=== PATIENT | male | born 1970 | race African-American/Black ===

== ENCOUNTER 2018-04-20 12:22 | Outpatient (CLI) | payer OTHER | END 2018-04-20 12:23 | disposition home or self-care (01) | LOC: BICULT 12:22 | PROVIDERS: ATTEND Internal Medicine Nephrology | DX: N18.4 Chronic kidney disease, stage 4 (severe) (principal); N28.1 Cyst of kidney, acquired | CPT/HCPCS: 76770 ==

== ENCOUNTER 2020-04-18 14:21 | Inpatient (IN) | payer OTHER, SELFPAY ==
[~2020-04-18 14:21] MED LIST: Iopamidol-370 76% 500 ML 1 ML ONE
[2020-04-18 15:06] LABS: Hemoglobin 13.3 g/dL (14.0-18.0); Mean Corpuscular HGB CONC 32.8 g/dL (32.0-36.0); Mean Corpuscular Hemoglobin 27.4 pg (27.0-31.0); Mean Corpuscular Volume 83.5 fL (78.0-98.0); Mean Platelet Volume 7.9 fL (7.4-10.4); Platelet Count 409 thou/uL (130-400); RBC Distribution Width 11.1 % (11.5-14.5); Red Blood Cell (RBC) Count 4.87 mill/uL (4.70-6.10); White Blood Cell (WBC) Count 8.9 thou/uL (4.8-10.8)
[2020-04-18 15:25] LABS: Band 30 % (5-11); Eosinophils 11 % (0-10); Lymphocytes 13 % (21-51); MDiff Complete? YES; Monocytes 12 % (0-10); Neutrophil 33 % (42-75); Platelet Morphology Comment Appears Increased; RBC Morphology Normal
[2020-04-18 15:30] LABS: ALT (SGPT) 7 U/L (8-55); AST (SGOT) 13 U/L (5-34); Albumin 3.4 g/dL (3.5-5.0); Alkaline Phosphatase 105 U/L (40-110); Anion Gap 12 mmol/L (10-20); BUN (Urea Nitrogen) 7 mg/dL (8.9-20.6); Bilirubin, Total 0.5 mg/dL (0.2-1.2); Calc. Creatinine Clearance 0 mL/min (70-130); Carbon Dioxide 27 mmol/L (22-29); Chloride 99 mmol/L (98-107); Estimated GFR-MDRD 57; Globulin 4.8 g/dL (2.4-3.5); Glucose 214 mg/dL (70-105); Lipase 32 U/L (8-78); Potassium 4.1 mmol/L (3.5-5.1); Protein, Total 8.2 g/dL (6.0-8.3); Sodium 134 mmol/L (136-145)
[2020-04-18] MEDS ORDERED: Ondansetron PF 4 MG/2 ML Vial ONE (17:03)
[2020-04-18] MEDS ORDERED: Morphine 4 MG/ML VIAL ONE (17:03)
--- NOTE | 2020-04-18 17:48 | CT ---
CT OF THE ABDOMEN AND PELVIS WITH IV CONTRAST INDICATION: History of abdominal pain and nausea with Crohn's disease COMPARISON: April 11, 2016 FINDINGS: ABDOMEN: Lung bases: Clear Liver: No focal lesion. Gallbladder: Normal appearing. Pancreas: Normal. Adrenal glands: Normal. Spleen: Normal. Kidneys and ureters: Bilateral renal cysts are stable. There is a 3 mm stone within the inferior pole of the left kidney which is stable. Vasculature: Normal. Lymph nodes:No lymphadenopathy. Free fluid in abdomen:No free fluid is evident. PELVIS: Small and large bowel: There is wall thickening involving the rectum and distal sigmoid colon. There is mild wall thickening involving portions of the transverse colon and splenic flexure. The TI appears within normal limits. The small bowel appears within normal limits. Appendix:Normal Bladder: Normal. Rectal and perirectal soft tissues:Mild wall thickening with perirectal inflammatory stranding Reproductive structures: Normal. Free fluid in pelvis: No free fluid is evident. Lymphadenopathy pelvis: A few mildly prominent lymph nodes are seen within the right lower quadrant o f the abdomen as well as within the Rectal soft tissues. Osseous structures: There is dextroscoliosis of the lumbar spine. There is scattered degenerative an d osteoarthritic changes. Soft tissues:Normal. IMPRESSION: 1. Findings of proctocolitis involving the rectum, sigmoid colon, splenic flexure and transverse colo n. No drainable fluid collection is evident. Findings are likely related to patient's underlying history of inflammatory bowel disease. Clinical follow-up is recommended. 2. Stable bilateral renal cysts and left nephrolithiasis.
[2020-04-18] MEDS ORDERED: metroNIDAZOLE 500 MG/100 ML BAG ONE (18:32)
[2020-04-18] MEDS ORDERED: Dexamethasone 10 MG/ML VIAL ONE (18:32)
[2020-04-18] MEDS ORDERED: Acetaminophen 325 MG TAB PO PRN (19:27)
[2020-04-18] MEDS ORDERED: Ondansetron PF 4 MG/2 ML Vial IVP PRN (19:27)
--- NOTE | 2020-04-18 19:27 | PDOC.HHP ---
Hospitalist HPI - History of Present Illness Abdominal pain, nausea, diarrhea History of Present Illness: Patient with PMH of Crohns disease with poor outpatient follow up presents to ED for evaluation of about 1-2 weeks progression of abdominal pain, diarrhea, nausea, poor oral intake. Tells me that symptoms started with persistent diarrhea for which he took several days of imodium with resolution of symptom. Denies diarrhea containing blood or significant mucus. He remains with significant diffuse abdominal pain, nausea and poor oral intake. Tells me that in the past used to be in [facility] but has been off any medications for about 1 year. Denies any fever or chills. No recent sick contacts or antibiotic use. Initial ED evaluation reveals bandemia with no leukocytosis, CT scan with evidence of diffuse colitis but no obvious abscess. VS are stable without any fever. Hospitalist ROS - Review of Systems Constitutional: reports: malaise. denies: fever, chills, weakness Eyes: denies: pain, vision change ENT: denies: ear pain, mouth pain, mouth swelling, throat pain Respiratory: denies: cough, shortness of breath, sputum Cardiovascular: denies: chest pain, palpitations, orthopnea Gastrointestinal: reports: nausea, abdominal pain, diarrhea. denies: vomiting, melena, hematochezia Genitourinary: denies: dysuria, frequency, incontinence Musculoskeletal: denies: neck pain, shoulder pain, back pain Skin: denies: rash, lesions Neurological: denies: weakness, numbness - Exam General Appearance: NAD, awake alert Eye: PERRL, anicteric sclera ENT: normocephalic atraumatic Neck: supple, no JVD Heart: RRR, no murmur, no gallops Respiratory: CTAB, no wheezes Gastrointestinal: soft, no guarding, no rigidity, tender to palpation Gastrointestinal - other findings: mild diffuse tenderness to abdomen Extremities: no cyanosis, no clubbing Skin: normal turgor Neurological: cranial nerve grossly intact Psychiatric: normal affect Hospitalist Results - Labs Result Diagrams: 04/18/20 14:36 04/18/20 14:36 Lab results: WBC 8.9 thou/uL (4.8-10.8) 04/18/20 14:36 Hgb 13.3 g/dL (14.0-18.0) L 04/18/20 14:36 Hct 40.7 % (42.0-52.0) L 04/18/20 14:36 MCV 83.5 fL (78.0-98.0) 04/18/20 14:36 Plt Count 409 thou/uL (130-400) H 04/18/20 14:36 Band Neuts % (Manual) 30 % (5-11) H 04/18/20 14:36 Sodium 134 mmol/L (136-145) L 04/18/20 14:36 Potassium 4.1 mmol/L (3.5-5.1) 04/18/20 14:36 Chloride 99 mmol/L (98-107) 04/18/20 14:36 Carbon Dioxide 27 mmol/L (22-29) 04/18/20 14:36 BUN 7 mg/dL (8.9-20.6) L 04/18/20 14:36 Creatinine 1.58 mg/dL (0.7-1.3) H 04/18/20 14:36 Glucose 214 mg/dL (70-105) H 04/18/20 14:36 Calcium 9.0 mg/dL (7.8-10.44) 04/18/20 14:36 Total Bilirubin 0.5 mg/dL (0.2-1.2) 04/18/20 14:36 AST 13 U/L (5-34) 04/18/20 14:36 ALT 7 U/L (8-55) L 04/18/20 14:36 Alkaline Phosphatase 105 U/L (40-110) 04/18/20 14:36 Serum Total Protein 8.2 g/dL (6.0-8.3) 04/18/20 14:36 Albumin 3.4 g/dL (3.5-5.0) L 04/18/20 14:36 Lipase 32 U/L (8-78) 04/18/20 14:36 - Radiology Interpretation CT scan - abdomen Status: image reviewed by me (IMPRESSION: 1. Nonspecific distention of the gallbladder without adjacent inflammatory changes. 2. Bibasilar parenchymal densities most likely attributable to atelectasis. However, pneumonia at eit her lung base is a possibility. 3. Subcentimeter difficult to characterize hypodense lesions involving each kidney. There is a larger hypodense lesion midportion right kidney which is slightly larger in size compared to study in 2017. However, this does not demonstrate attenuation coefficient compatible with a simple cyst. Follo w-up CT scan examination with and without IV contrast is recommended. 4. Degenerative changes lumbar spine with grade 1 anterolisthesis of L3 on L4 and L4 on L5. 5. Additional findings as described above.) Hospitalist H&P A/P - Plan Plan: Problem List 1. Crohns disease exacerbation 2. Bandemia 3. Dehydration 4. Possible diabetes Assessment and Plan 1. Crohns disease exacerbation - admit patient for further management of possible Crohns disease exacerbation - start clear liquid diet and advance as tolerated - check stool for C.diff if possible & WBCs, CRP/ESR - start IV ABX: Cefepime and Flagyl - trial if IV steroids: Methylprednisolone - IV Morphine PRN for pain control - GI service has been consulted for further advice 2. Bandemia - non toxic appearing, afebrile - likely reactive in setting of inflammation - blood cultures obtained - cover with empiric course of ABX as above 3. Dehydration - continue with IVF hydration - advance diet as tolerated 4. Possible diabetes - per patient no longer takes medications - consider A1C - consider insulin sliding scale DVT PPX: Lovenox FULL CODE
[2020-04-18] MEDS ORDERED: Morphine 2 MG/ML SYRINGE SLOW IVP PRN (19:32)
[2020-04-18] MEDS ORDERED: Dextrose 5% in Water 1,000 ML IV PRN (19:40)
[2020-04-18] MEDS ORDERED: Dextrose 50% Abboject 50 ML SYRINGE SLOW IVP PRN (19:40)
[2020-04-18] MEDS: Famotidine/PF 20 mg/2ml Vial SLOW IVP SCH (22:15)
[2020-04-18] MEDS: Cefepime 1 GM in Sodium Chloride 0.9% 100 ML IVPB SCH (22:16)
[2020-04-18] MEDS: Sodium Chloride 0.9% 1,000 ML IV SCH (22:16)
[2020-04-19] MEDS: metroNIDAZOLE 500 MG in Premix Bag 1 BAG IVPB SCH ×2 (01:28→11:13)
[2020-04-19] MEDS: Sodium Chloride 0.9% 1,000 ML IV SCH ×3 (04:05→18:27)
[2020-04-19 06:12] LABS: #Lymphocytes 0.5 thou/uL (1.20-3.40); #Monocytes 0.2 thou/uL (0.11-0.59); #Neutrophils 4.9 thou/uL (1.40-6.50); %Basophils 0.8 % (0.0-1.0); %Eosinophils 0.1 % (0.0-10.0); %Monocytes 3.8 % (0.0-10.0); %Neutrophils 87.3 % (42.0-75.0); Hemoglobin 12.3 g/dL (14.0-18.0); Mean Corpuscular Hemoglobin 26.4 pg (27.0-31.0); Mean Corpuscular Volume 85.2 fL (78.0-98.0); Mean Platelet Volume 7.5 fL (7.4-10.4); Platelet Count 379 thou/uL (130-400); RBC Distribution Width 11.1 % (11.5-14.5); Red Blood Cell (RBC) Count 4.64 mill/uL (4.70-6.10); White Blood Cell (WBC) Count 5.7 thou/uL (4.8-10.8)
[2020-04-19 06:29] LABS: Hemoglobin A1c 7.8 % (4.0-6.0)
[2020-04-19 06:34] LABS: ALT (SGPT) 10 U/L (8-55); AST (SGOT) 11 U/L (5-34); Alkaline Phosphatase 90 U/L (40-110); BUN (Urea Nitrogen) 6 mg/dL (8.9-20.6); Bilirubin, Total 0.3 mg/dL (0.2-1.2); Calc. Creatinine Clearance 78 mL/min (70-130); Calcium 8.7 mg/dL (7.8-10.44); Carbon Dioxide 21 mmol/L (22-29); Estimated GFR-MDRD 77; Globulin 4.2 g/dL (2.4-3.5); Glucose 221 mg/dL (70-105); Protein, Total 7.2 g/dL (6.0-8.3)
[2020-04-19 06:41] LABS: Anion Gap 14 mmol/L (10-20); Chloride 107 mmol/L (98-107); Potassium 4.9 mmol/L (3.5-5.1); Sodium 136 mmol/L (136-145)
[2020-04-19] MEDS: HumaLOG 300 UNITS/3 ML VIAL SC PRN ×3 (06:47→21:30)
[2020-04-19] MEDS: Cefepime 1 GM in Sodium Chloride 0.9% 100 ML IVPB SCH (08:51)
[2020-04-19] MEDS: Enoxaparin Sodium 40 MG/0.4 ML SYRINGE SC SCH (08:54)
[2020-04-19] MEDS: Famotidine/PF 20 mg/2ml Vial SLOW IVP SCH ×2 (08:54→21:30)
[2020-04-19] MEDS ORDERED: methylPREDNISolone Sod Succ/PF 125 MG/2 ML VIAL IVP SCH (09:00)
[2020-04-19] MEDS: methylPREDNISolone Sod Succ 40 MG VIAL IVP SCH ×3 (11:44→23:06)
--- NOTE | 2020-04-19 13:13 | PDOC.HOSPP ---
- Subjective Encounter Date: 04/19/20 Encounter Time: 11:10 Subjective: pt had 3 BMs - mucous but not watery or fowl smelly and 3 BMs is normal for him. GI has visited him this am. no sig.. abd discomfort. - Objective Vital Signs & Weight: Vital Signs (12 hours) Temp Pulse Resp BP Pulse Ox 04/19/20 07:46 97.6 F 71 16 131/77 99 Weight Weight 165 lb 1 oz Result Diagrams: 04/19/20 06:02 04/19/20 06:02 Additional Labs: Accuchecks 04/19/20 04/19/20 04/18/20 12:22 06:49 23:05 POC Glucose 189 H 211 H 245 H Hospitalist ROS - Medication Medications: Active Medications Generic Name Dose Route Start Last Admin Trade Name Freq PRN Reason Stop Dose Admin Enoxaparin Sodium 40 mg 04/19/20 09:00 04/19/20 08:54 Lovenox SC 40 mg 0900 SHARIFA Administration Famotidine 20 mg 04/18/20 21:00 04/19/20 08:54 Pepcid SLOW IVP 20 mg Q12HR SHARIFA Administration Sodium Chloride 1,000 mls @ 125 mls/hr 04/18/20 19:30 04/19/20 08:50 Normal Saline 0.9% IV 1,000 mls .Q8H SHARIFA Administration Insulin Human Lispro 0 units 04/18/20 19:40 04/19/20 06:47 Humalog SC 3 unit .MILD SLIDING SCALE PRN Administration Mild Correctional Scale Methylprednisolone Sodium Succinate 40 mg 04/19/20 12:00 04/19/20 11:44 Solu-Medrol IVP Not Given Q6HR SHARIFA Sodium Chloride 10 ml 04/19/20 09:00 04/19/20 08:54 Flush - Normal Saline IVF Not Given Q12HR SHARIFA - Exam General Appearance: NAD, awake alert Eye: PERRL ENT: normocephalic atraumatic Neck: supple Heart: RRR Respiratory: CTAB, normal chest expansion Gastrointestinal: soft, normal bowel sounds Neurological: no focal deficits Hosp A/P - Plan Crohns flare up Procot-colitis -on CLD - cdiff -- may not be done as mucousy BM -crp 8.3 - on cefepime and flagl - on colazol and IV steroid -antimeitic -pepcid. -pending GI input. DMs -a1c of 7.8 -SSI Lovenox for DVT ppx
[2020-04-19 15:54] VITALS: BMI 22.4
--- NOTE | 2020-04-19 17:02 | CON ---
DATE OF CONSULTATION: 04/19/2020 CHIEF COMPLAINT: Abdominal pain and diarrhea. HISTORY OF PRESENT ILLNESS: Mr. Jackson is a 49-year-old male with known history of Crohn's colitis, initially diagnosed in 2016, based on colonoscopy finding of scattered discontinuous ulcerations. His serological antibody test came back was suggestive of Crohn disease. The patient was initially treated with mesalamine and azathioprine. However, he was intolerant to azathioprine, which caused severe nausea, vomiting, and abdominal pain. He was then started on Humira injection, which he took for almost two years until this past May when he lost his job. During the Humira treatment, he did well with the Crohn's in remission. However , he did inform of having skin problem with Humira therapy and joint pain. Since May being off medication, he has had intermittent abdominal pain and mucousy bloody stool that started over the fall of last year and early part of this year. Over the last 2 weeks, he has had more significant upper abdominal pain associated with anorexia and nausea. He could not eat or drink much and had lost approximately 15 pounds. He did have frequent diarrhea with mucus, but without blood. The patient finally presented to the emergency room last night, where a CT performed showed evidence of colitis involving the transverse and distal rectosigmoid colon. No evidence of obstruction or abscess. He has received IV corticosteroid overnight. Currently, he reports feeling much better with resolution of his abdominal pain. PAST MEDICAL HISTORY: Crohn's colitis. PAST SURGICAL HISTORY: Includes appendectomy and Lasik surgery. MEDICATION AT HOME: none. SOCIAL HISTORY: The patient has no active tobacco or alcohol usage. FAMILY HISTORY: Negative for any known GI problem, liver disease, or GI malignancy. REVIEW OF SYSTEMS: Ten-point review of system did not show any other pertinent negatives or positives. No other symptoms other than above reported. ALLERGIES: INCLUDE LISINOPRIL AND INTOLERANT TO AZATHIOPRINE. PHYSICAL EXAMINATION: VITAL SIGNS: Temperature 97.6, blood pressure 131/77, pulse of 71. GENERAL: He is alert, conversant, does not appear in any distress. HEENT: Head exam shows anicteric sclerae. Oropharynx is moist. NECK: Supple. No adenopathy. CV: Shows normal S1 and S2. Regular rate and rhythm. CHEST: Shows breath sounds. LUNGS: Clear to auscultation. No adventitious sounds. ABDOMEN: Soft and nontender to palpation. No distention. No tympany. He has active bowel sounds. No palpable splenohepatomegaly. EXTREMITIES: Shows no edema. LABORATORY DATA: Electrolytes within normal range. Creatinine 1.21, BUN of 6. His hemoglobin A1c is 7.8, glucose is 221 this morning. Bilirubin 0.3, AST of 11, ALT of 10, alkaline phosphatase of 90. WBC is 5.7, hemoglobin 12.3, and platelet count of 379. CT of the abdomen and pelvis with contrast showed evidence of colitis involving the transverse, splenic flexure, and rectosigmoid area. No obstruction or abscess. ASSESSMENT: Exacerbation of Crohn's colitis without any other complicated finding on CT. Currently, the patient feels much better with IV corticosteroid therapy. The patient was intolerant to azathioprine in the past, but responded well to anti-TNF treatment. Unfortunately, he has been without medication for almost a year now. RECOMMENDATIONS: 1. Continue methylprednisolone, change to 40 mg IV q.6. 2. Discontinue metronidazole and cefepime as there is no evidence of infectious etiology to his colitis, stool studies pending. 3. We will advance diet. 4. The patient can be discharged home on oral prednisone tomorrow. I will follow up with him as an outpatient to determine the best course of future therapy. In the meantime, we will restart him on mesalamine, balsalazide 250 mg three tablets p.o. t.i.d. Job ID: [id number] [facility]
[2020-04-20] MEDS: Sodium Chloride 0.9% 1,000 ML IV SCH ×3 (03:14→18:10)
[2020-04-20] MEDS: methylPREDNISolone Sod Succ 40 MG VIAL IVP SCH ×3 (06:04→18:11)
[2020-04-20] MEDS: HumaLOG 300 UNITS/3 ML VIAL SC PRN ×4 (06:06→21:46)
[2020-04-20] MEDS: Famotidine/PF 20 mg/2ml Vial SLOW IVP SCH ×2 (10:18→21:34)
[2020-04-20] MEDS: Enoxaparin Sodium 40 MG/0.4 ML SYRINGE SC SCH (10:19)
--- NOTE | 2020-04-20 15:54 | PDOC.HOSPP ---
- Subjective Encounter Date: 04/20/20 Encounter Time: 13:00 Subjective: started Po intake today, on steroid. BG high d/t steroid, a1c 7.8; pt has to be started on diabetic meds as he is only on glipizde --not controlled. - Objective Vital Signs & Weight: Vital Signs (12 hours) Temp Pulse Resp BP Pulse Ox 04/20/20 08:00 97.7 F 04/20/20 07:45 97.7 F 77 20 134/78 98 04/20/20 04:31 97 Weight Admit Weight 165 lb Weight 165 lb 1 oz I&O: 04/19/20 04/20/20 04/21/20 06:59 06:59 06:59 Intake Total 720 Balance 720 Result Diagrams: 04/19/20 06:02 04/19/20 06:02 Additional Labs: Accuchecks 04/20/20 04/20/20 04/19/20 11:29 06:10 20:16 POC Glucose 240 H 174 H 236 H 04/19/20 17:00 POC Glucose 222 H Hospitalist ROS - Medication Medications: Active Medications Generic Name Dose Route Start Last Admin Trade Name Freq PRN Reason Stop Dose Admin Balsalazide 2,250 mg 04/19/20 15:00 04/20/20 15:00 Colazal PO 2,250 mg TID SHARIFA Administration Enoxaparin Sodium 40 mg 04/19/20 09:00 04/20/20 10:19 Lovenox SC 40 mg 0900 SHARIFA Administration Famotidine 20 mg 04/18/20 21:00 04/20/20 10:18 Pepcid SLOW IVP 20 mg Q12HR SHARIFA Administration Sodium Chloride 1,000 mls @ 125 mls/hr 04/18/20 19:30 04/20/20 10:25 Normal Saline 0.9% IV 1,000 mls .Q8H SHARIFA Administration Insulin Human Lispro 0 units 04/18/20 19:40 04/20/20 12:55 Humalog SC 3 unit .MILD SLIDING SCALE PRN Administration Mild Correctional Scale Methylprednisolone Sodium Succinate 40 mg 04/19/20 12:00 04/20/20 12:57 Solu-Medrol IVP 40 mg Q6HR SHARIFA Administration Sodium Chloride 10 ml 04/19/20 09:00 04/20/20 10:22 Flush - Normal Saline IVF 10 ml Q12HR SHARIFA Administration - Exam General Appearance: NAD, awake alert Eye: PERRL ENT: normocephalic atraumatic Neck: supple Heart: RRR Respiratory: CTAB, normal chest expansion Gastrointestinal: normal bowel sounds Neurological: no focal deficits Psychiatric: normal affect, normal behavior, A&O x 3 Hosp A/P - Plan Crohns flare up Procto-colitis -on CLD - cdiff -- may not be done as mucousy BM -crp 8.3 - on cefepime and flagl - on colazol and IV steroid -antimeitic -pepcid. -pending GI input. DM 2 -a1c of 7.8 + steroid induced hyperglycemia - glipizide+ -need to start another oral drug. Lovenox for DVT ppx checking w.. Dr. Myers, whether it is ok to start on metfomin given, as pt needs 2nd po drug. dc in am.
[2020-04-20] MEDS ORDERED: metFORMIN 500 MG TAB PO SCH (16:15)
--- NOTE | 2020-04-21 00:33 | PRG ---
DATE OF SERVICE: 04/20/2020 REASON FOR CONSULTATION: Crohn disease flare. SUBJECTIVE: Since initiation of IV steroids, the patient states that he is significantly improving with decreased abdominal pain, diarrhea, and hematochezia when compared to admission. However, he has not had resolution of the above symptoms, but they are significantly better. Otherwise, he denies any nausea, vomiting, fevers, chills, hematemesis, melena, dysphagia, or odynophagia. He has been able to tolerate a solid diet well without any difficulty. Currently having approximately 4 to 5 semi-solid stools, but are solidifying in terms of their consistency. OBJECTIVE: VITAL SIGNS: Temperature 97.7, pulse 70, blood pressure 144/77, respiratory rate 16, saturating 99% on room air. GENERAL: The patient was lying in bed, in no acute distress. Alert and oriented x4. CARDIOVASCULAR: Regular rate and rhythm. RESPIRATORY: Clear to auscultation bilaterally. ABDOMEN: Normoactive bowel sounds. Soft, nondistended. Tenderness to palpation in the periumbilical region. EXTREMITIES: No cyanosis, clubbing, or edema. LABORATORY DATA: No current studies are available for review. IMAGING DATA: No current studies are available for review. ASSESSMENT AND PLAN: The patient is a 49-year-old male with past medical history of Crohn's colitis, presenting with increased abdominal pain, diarrhea, and hematochezia consistent with a Crohn disease flare. Crohn's flare: The patient initially presented with increasing upper abdominal pain, diarrhea, and hematochezia with imaging on admission showing the presence of colitis involving the transverse and the distal rectosigmoid colon. Infectious stool studies were not obtained, but rather the patient was placed on IV steroids and has had significant improvement in his symptoms thus far indicative of a Crohn's flare as the subsequent etiology of his above symptoms. At this time, the patient is able to tolerate a diet, is having solidification of stools and improving abdominal pain, indicating response to treatment with steroid administration. Given his significant response to therapy, transferring the patient to oral formulation for steroids may be prudent with having the patient followup in the outpatient clinic to be placed on either amino modulators or biologic therapy as part of maintenance for his Crohn's colitis. RECOMMENDATIONS: 1. We would transfer the patient from methylprednisolone to prednisone 40 mg daily in an attempt to have the patient follow up in the outpatient clinic. 2. I would recommend having the patient continue the prednisone 40 mg daily until seen in the outpatient clinic within the next 2 weeks. 3. We would continue balsalazide 250 mg three tablets three times daily until seen in the GI Clinic. 4. If the patient is doing well tomorrow morning, he could be potentially discharged to home with close outpatient followup in the GI Clinic. Please call with any questions. We will sign off at this time. Job ID: [id number]
[2020-04-21] MEDS: Sodium Chloride 0.9% 1,000 ML IV SCH (03:15)
[2020-04-21] MEDS: HumaLOG 300 UNITS/3 ML VIAL SC PRN (05:39)
[2020-04-21 07:56] VITALS: BP 125/72; TEMP 97.9
[2020-04-21] MEDS ORDERED: metFORMIN 500 MG TAB PO SCH (08:00)
[2020-04-21] MEDS ORDERED: predniSONE 20 MG TAB PO SCH (08:00)
[2020-04-21] MEDS: Enoxaparin Sodium 40 MG/0.4 ML SYRINGE SC SCH (09:37)
[2020-04-21] MEDS: Famotidine/PF 20 mg/2ml Vial SLOW IVP SCH (09:37)
--- NOTE | 2020-04-21 15:48 | DIS ---
DATE OF ADMISSION: 04/18/2020 DATE OF DISCHARGE: 04/21/2020 DISCHARGE DIAGNOSES: 1. Crohn's flare-up. 2. Proctocolitis. 3. Type 2 diabetes mellitus with A1c of 7.8. 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 Short. MEDICATIONS: 1. Metformin 500 mg daily. 2. Glipizide 5 mg twice a day. 3. Prednisone 40 mg daily: 4. Colazal 750 mg three times a day. PHYSICAL EXAMINATION: VITAL SIGNS: Temperature 97.9, pulse 81, blood pressure 125/72, and he is saturating 98% on room air. GENERAL: The patient is alert and oriented. He is not in any acute distress. He looks well. Tolerating his p.o. diet and ambulating without any distress. He did have some bowel movement, mucusy today, but no identifiable blood in the stool. CARDIOVASCULAR: Regular rate and rhythm without murmurs, rubs or gallops. LUNGS: Clear to auscultation bilaterally without wheezing, rales or rhonchi. ABDOMEN: Soft, nontender, and nondistended. Good bowel sounds. HOSPITAL COURSE: This is a 49-year-old male with a known history of Crohn colitis, diagnosed in 2016 based on discontinuous ulcerations seen by colonoscopy, presented with several episodes of mucous diarrhea as well as abdominal pain associated with anorexia and nausea. He lost approximately 15 pounds over the last 2 weeks. He was started on IV corticosteroid overnight and then changed to 40 mg IV q.6. Later discharged on prednisone 40 mg daily and it will be tapered over the course of the time during his clinic visit. He is also started on mesalamine 250 mg 3 tablets three times a day. in addition to empiric metronidazole and cefepime which was later discontinued. His blood cultures were negative. The patient was started on clear liquid diet and advanced to regular and he tolerated well. Clinically sound enough to be going home today. DISCHARGE INSTRUCTION: ACTIVITY: As tolerated. DIET: Regular diet. FOLLOWUP: Follow up with Dr. Short's group in 2 weeks time. Follow up with the primary care physician in 1 week. TIME SPENT: Discharge time took over 35 minutes. Job ID: [id number] [facility]
== END 2020-04-21 11:50 | disposition home or self-care (01) | DRG 387 ==
LOC: ERS 14:21 → T4-B 19:20
PROVIDERS: ADMIT Internal Medicine; ATTEND Internal Medicine
DX: K50.90 Crohn's disease, unspecified, without complications (principal); E11.9 Type 2 diabetes mellitus without complications; I10 Essential (primary) hypertension; E86.0 Dehydration; Z90.49 Acquired absence of other specified parts of digestive tract; Z88.8 Allergy status to other drugs, medicaments and biological substances
CPT/HCPCS: 36415; 36416; 74177; 80053; 83036; 83605; 83690; 85025; 85652; 86140; 87040; 96361; 96365; 96367; 96375; J0692; J1100; J1650; J1956; J2270; J2405; J2920; J2930; J3490; J7512; J8499; Q9967; S0028

== ENCOUNTER 2020-09-08 07:53 | Day surgery (SDC) | payer SELFPAY ==
[~2020-09-08 07:53] MED LIST changes: +Acetaminophen 500 MG TAB PO PRN; +Acetaminophen 500 MG TAB PO SCH; -Iopamidol-370 76% 500 ML 1 ML ONE; +Sodium Chloride 0.9% 1,000 ML IV SCH; +Vedolizumab 300 MG in Sodium Chloride 0.9% 250 ML 250 ML IVPB SCH
[2020-09-08 08:38] VITALS: BP 161/82; TEMP 98.2
[2020-09-08] MEDS ORDERED: Sodium Chloride 0.9% 20 ML ONE (08:56)
== END 2020-09-08 09:48 | disposition home or self-care (01) ==
LOC: ONC/OP 07:53
PROVIDERS: ATTEND Internal Medicine Gastroenterology
DX: K50.90 Crohn's disease, unspecified, without complications (principal); Z88.8 Allergy status to other drugs, medicaments and biological substances
CPT/HCPCS: 96413

== ENCOUNTER 2020-09-22 08:07 | Day surgery (SDC) | payer OTHER, SELFPAY ==
[2020-09-22] MEDS ORDERED: Sodium Chloride 0.9% 20 ML ONE (08:25)
[2020-09-22 11:44] VITALS: BP 149/84; TEMP 97.9
== END 2020-09-22 11:44 | disposition home or self-care (01) ==
LOC: ONC/OP 08:07
PROVIDERS: ATTEND Internal Medicine Gastroenterology
DX: K50.90 Crohn's disease, unspecified, without complications (principal); Z88.8 Allergy status to other drugs, medicaments and biological substances
CPT/HCPCS: 96413

== ENCOUNTER 2020-10-20 08:31 | Day surgery (SDC) | payer OTHER ==
[2020-10-20] MEDS ORDERED: Sodium Chloride 0.9% 20 ML ONE (08:46)
[2020-10-20 09:14] VITALS: BP 140/84; TEMP 97.9
== END 2020-10-20 11:22 | disposition home or self-care (01) ==
LOC: ONC/OP 08:31
PROVIDERS: ATTEND Internal Medicine Gastroenterology
DX: K50.90 Crohn's disease, unspecified, without complications (principal); Z88.8 Allergy status to other drugs, medicaments and biological substances
CPT/HCPCS: 96413

== ENCOUNTER 2020-12-15 08:12 | Day surgery (SDC) | payer OTHER ==
[2020-12-15 09:09] VITALS: BP 129/83; TEMP 97.7
[2020-12-15] MEDS ORDERED: Sodium Chloride 0.9% 20 ML ONE (09:28)
== END 2020-12-15 11:18 | disposition home or self-care (01) ==
LOC: ONC/OP 08:12
PROVIDERS: ATTEND Internal Medicine Gastroenterology
DX: K50.90 Crohn's disease, unspecified, without complications (principal); Z88.8 Allergy status to other drugs, medicaments and biological substances
CPT/HCPCS: 96413

== ENCOUNTER 2021-01-26 08:38 | Day surgery (SDC) | payer OTHER ==
[2021-01-26 09:48] VITALS: BP 132/82; TEMP 98.2
[2021-01-26] MEDS ORDERED: Sodium Chloride 0.9% 20 ML ONE (11:12)
== END 2021-01-26 12:21 | disposition home or self-care (01) ==
LOC: ONC/OP 08:38
PROVIDERS: ATTEND Internal Medicine Gastroenterology
DX: K50.90 Crohn's disease, unspecified, without complications (principal); Z88.8 Allergy status to other drugs, medicaments and biological substances
CPT/HCPCS: 96413

== ENCOUNTER 2021-03-09 08:54 | Day surgery (SDC) | payer OTHER ==
[2021-03-09] MEDS ORDERED: Sodium Chloride 0.9% 20 ML ONE ×2 (08:58→09:20)
[2021-03-09 09:58] VITALS: BP 147/84; TEMP 97.8
== END 2021-03-09 11:36 | disposition home or self-care (01) ==
LOC: ONC/OP 08:54
PROVIDERS: ATTEND Internal Medicine Gastroenterology
DX: K50.90 Crohn's disease, unspecified, without complications (principal); Z88.8 Allergy status to other drugs, medicaments and biological substances
CPT/HCPCS: 96413

== ENCOUNTER 2021-04-20 08:19 | Day surgery (SDC) | payer OTHER, SELFPAY ==
[2021-04-20] MEDS ORDERED: Sodium Chloride 0.9% 20 ML ONE (08:26)
[2021-04-20] MEDS ORDERED: Acetaminophen 500 MG TAB PO PRN ×2 (08:29)
[2021-04-20] MEDS ORDERED: Vedolizumab 300 MG in Sodium Chloride 0.9% 250 ML 250 ML IVPB SCH (08:30)
[2021-04-20 08:47] VITALS: BP 133/80
== END 2021-04-20 12:57 | disposition home or self-care (01) ==
LOC: ONC/OP 08:19
PROVIDERS: ATTEND Internal Medicine Gastroenterology
DX: K50.90 Crohn's disease, unspecified, without complications (principal); Z88.8 Allergy status to other drugs, medicaments and biological substances
CPT/HCPCS: 96413

== ENCOUNTER 2021-06-01 08:51 | Day surgery (SDC) | payer SELFPAY ==
[2021-06-01] MEDS ORDERED: Sodium Chloride 0.9% 20 ML ONE (08:57)
[2021-06-01 09:12] VITALS: BP 138/86
== END 2021-06-01 10:06 | disposition home or self-care (01) ==
LOC: ONC/OP 08:51
PROVIDERS: ATTEND Internal Medicine Gastroenterology
DX: K50.90 Crohn's disease, unspecified, without complications (principal); Z88.8 Allergy status to other drugs, medicaments and biological substances
CPT/HCPCS: 96413

== ENCOUNTER 2021-07-13 09:12 | Day surgery (SDC) | payer SELFPAY ==
[2021-07-13] MEDS ORDERED: Sodium Chloride 0.9% 20 ML ONE (09:18)
[2021-07-13 10:15] VITALS: BP 142/84
== END 2021-07-13 12:06 | disposition home or self-care (01) ==
LOC: ONC/OP 09:12
PROVIDERS: ATTEND Internal Medicine Gastroenterology
DX: K50.90 Crohn's disease, unspecified, without complications (principal); Z88.8 Allergy status to other drugs, medicaments and biological substances
CPT/HCPCS: 96413

== ENCOUNTER 2021-08-24 08:29 | Day surgery (SDC) | payer SELFPAY ==
[~2021-08-24 08:29] MED LIST changes: -Acetaminophen 500 MG TAB PO SCH
[2021-08-24] MEDS ORDERED: Sodium Chloride 0.9% 20 ML ONE (12:04)
[2021-08-24 12:45] VITALS: BP 141/80; TEMP 97.7
== END 2021-08-24 12:46 | disposition home or self-care (01) ==
LOC: ONC/OP 08:29
PROVIDERS: ATTEND Internal Medicine Gastroenterology
DX: K50.90 Crohn's disease, unspecified, without complications (principal); Z88.8 Allergy status to other drugs, medicaments and biological substances
CPT/HCPCS: 96365

== ENCOUNTER 2021-10-05 08:58 | Day surgery (SDC) | payer SELFPAY ==
[2021-10-05] MEDS ORDERED: Sodium Chloride 0.9% 10 ML ONE ×2 (09:09)
[2021-10-05 09:54] VITALS: BP 177/85; TEMP 98.5
== END 2021-10-05 10:14 | disposition home or self-care (01) ==
LOC: ONC/OP 08:58
PROVIDERS: ATTEND Internal Medicine Gastroenterology
DX: K50.90 Crohn's disease, unspecified, without complications (principal); Z88.8 Allergy status to other drugs, medicaments and biological substances
CPT/HCPCS: 96413